=== PATIENT | female | born 1945 | race Caucasian/White ===

== ENCOUNTER 2018-02-28 12:21 | Outpatient (CLI) | payer MEDICARE, OTHER | END 2018-02-28 12:22 | disposition home or self-care (01) | LOC: BICRAD 12:21 | PROVIDERS: ATTEND Podiatrist | DX: M25.572 Pain in left ankle and joints of left foot (principal) ==

== ENCOUNTER 2019-01-05 15:34 | Emergency (ER) | payer MEDICARE, OTHER ==
--- NOTE | 2019-01-05 16:28 | RAD ---
Exam: Chest one view HISTORY:Cough Comparison: None FINDINGS: Cardiac silhouette:Normal heart size. Atherosclerosis of the aorta. Pulmonary vessels: Normal Costophrenic angles: Clear LUNGS: No masses or consolidation. Hyperinflation. Pneumothorax: None Osseous abnormalities: None IMPRESSION: 1. Hyperinflation. COPD. 2. Atherosclerosis.
== END 2019-01-05 17:11 | disposition home or self-care (01) ==
LOC: ERS 15:34
DX: J06.9 Acute upper respiratory infection, unspecified (principal); E03.9 Hypothyroidism, unspecified; E78.5 Hyperlipidemia, unspecified; Z79.899 Other long term (current) drug therapy
CPT/HCPCS: 71045

== ENCOUNTER 2019-07-26 12:30 | Emergency (ER) | payer MEDICARE ==
--- NOTE | 2019-07-26 13:05 | RAD ---
XR Chest 1 View Portable HISTORY: Vomiting, weakness, dizziness, shortness of breath COMPARISON: 01/05/2019 FINDINGS: The heart size is normal. The lungs are well expanded without focal areas of consolidation, pneumothorax or pleural effusions. IMPRESSION: No radiographic evidence of acute cardiopulmonary process.
[2019-07-26 13:07] LABS: #Lymphocytes 1.2 thou/uL (1.20-3.40); #Monocytes 0.4 thou/uL (0.11-0.59); #Neutrophils 8.1 thou/uL (1.40-6.50); %Lymphocytes 12.2 % (21.0-51.0); %Monocytes 4.2 % (0.0-10.0); %Neutrophils 83.5 % (42.0-75.0); Hemoglobin 14.5 g/dL (12.0-16.0); Mean Corpuscular HGB CONC 34.4 g/dL (32.0-36.0); Mean Corpuscular Hemoglobin 34.1 pg (27.0-31.0); Mean Corpuscular Volume 99.2 fL (78.0-98.0); Mean Platelet Volume 8.4 fL (7.4-10.4); Platelet Count 225 thou/uL (130-400); RBC Distribution Width 11.7 % (11.5-14.5); Red Blood Cell (RBC) Count 4.25 mill/uL (4.20-5.40); White Blood Cell (WBC) Count 9.7 thou/uL (4.8-10.8)
[2019-07-26] MEDS ORDERED: Ondansetron PF 4 MG/2 ML Vial ONE (14:20)
[2019-07-26 14:33] LABS: Albumin 4.3 g/dL (3.4-4.8)
[2019-07-26 14:35] LABS: Calcium 9.8 mg/dL (7.8-10.44); Chloride 100 mmol/L (98-107); Potassium 3.6 mmol/L (3.5-5.1); Sodium 135 mmol/L (136-145)
[2019-07-26 14:36] LABS: Globulin 2.7 g/dL (2.4-3.5); Glucose 118 mg/dL (83-110)
[2019-07-26 14:37] LABS: Anion Gap 12 mmol/L (10-20); Carbon Dioxide 27 mmol/L (23-31)
[2019-07-26 14:38] LABS: Bilirubin, Total 0.7 mg/dL (0.2-1.2)
[2019-07-26 14:39] LABS: Alkaline Phosphatase 67 U/L (40-110); Calc. Creatinine Clearance 0 mL/min (70-130); Estimated GFR-MDRD 79
[2019-07-26 14:40] LABS: BUN (Urea Nitrogen) 10 mg/dL (9.8-20.1)
[2019-07-26 14:41] LABS: AST (SGOT) 22 U/L (5-34)
[2019-07-26 14:42] LABS: ALT (SGPT) 19 U/L (8-55); CK (CPK) 125 U/L (29-168); Lipase 21 U/L (8-78)
[2019-07-26 15:04] LABS: Bacteria/HPF None Seen HPF (None Seen); Bilirubin Negative (Negative); Blood, Urine Negative (Negative); Clarity Clear (Clear); Glucose, Urine (Dipstick) 100 mg/dL (Negative); Leukocyte 25 Leu/uL (Negative); Mucous/LPF 2+ LPF (<2+); Nitrite Negative (Negative); Protein, Urine (Dipstick) 100 mg/dL (Neg-Trace); Squamous Epithelial 0-3 HPF (0-3); Urobilinogen Normal mg/dL (Less than 2)
[2019-07-26] MEDS ORDERED: Ketorolac Tromethamine 30 MG/ML VIAL ONE (15:34)
== END 2019-07-26 16:31 | disposition home or self-care (01) ==
LOC: ERS 12:30
DX: R11.2 Nausea with vomiting, unspecified (principal); E03.9 Hypothyroidism, unspecified; E78.5 Hyperlipidemia, unspecified; Z79.899 Other long term (current) drug therapy
CPT/HCPCS: 36415; 71045; 80053; 81003; 81015; 82550; 83690; 84484; 85025; 93005; 94760; 96361; 96374; 96375; J1885; J2405